=== PATIENT | female | born 1980 | race Asian ===

== ENCOUNTER → 2016-10-10 | Outpatient (CLI) | payer BC ==
[~2016-10-10] MED LIST: LEVO75TA5 PO
--- NOTE | 2016-10-10 12:02 | DIAGNOSTIC IMAGING REPORT ---
LUMBAR SPINE 5 VIEWS CLINICAL HISTORY: Low back pain. FINDINGS: 5 views of the lumbar spine are obtained. No prior studies are available for comparison at the time of dictation. The skeletal structures are well mineralized. There is no radiographic evidence of fracture or malalignment. Vertebral body height and alignment are maintained. The transverse and spinous processes are intact. There is no evidence of spondylolysis. Tiny anterior osteophytes are seen from L2 to L4. Minimal degenerative disc space narrowing is seen at L5-S1. The remaining intervertebral disc spaces are well-maintained. The visualized bony pelvis appears intact. There is a nonobstructed abdominal bowel gas pattern. IMPRESSION: Unremarkable radiographic evaluation of the lumbosacral spine. Electronically signed by: Manuel Farrar M.D. 10/10/2016 12:01 PM Dictated Date/Time: 10/10/2016 12:00 PM
--- NOTE | 2016-10-10 12:06 | DIAGNOSTIC IMAGING REPORT ---
C-SPINE ROUTINE 4 OR 5 VIEWS CLINICAL HISTORY: Neck pain. COMPARISON STUDY: No previous studies for comparison. FINDINGS: There is reversal of the normal cervical lordosis. No fracture or suspicious lesion is present. There is mild disc space narrowing and osteophytosis at C5-C6 and C6-C7. IMPRESSION: 1. No acute cervical spine fracture. 2. Reversal of normal cervical lordosis. 3. Mild disc space narrowing and osteophytosis at C5-C6 and C6-C7. Electronically signed by: Laron Douglas M.D. 10/10/2016 12:04 PM Dictated Date/Time: 10/10/2016 12:00 PM
== END | disposition home or self-care (01) ==
LOC: C.RAD 11:20
PROVIDERS: ATTEND Family Medicine
DX: M54.5 Low back pain (principal); M54.2 Cervicalgia

== ENCOUNTER → 2017-01-14 | Outpatient (CLI) | payer BC | END | disposition home or self-care (01) | LOC: C.LAB1850 09:39 | PROVIDERS: ATTEND Obstetrics & Gynecology | DX: Z34.90 Encounter for supervision of normal pregnancy, unspecified, unspecified trimester (principal) ==

== ENCOUNTER → 2017-01-31 | Outpatient (CLI) | payer BC ==
[2017-01-31 18:25] LABS: URINE APPEARANCE CLEAR (CLEAR); URINE BILIRUBIN NEG (NEG); URINE COLOR YELLOW; URINE NITRITE NEG (NEG); URINE PH 8.5 (4.5-7.5); URINE SPECIFIC GRAVITY 1.009 (1.000-1.030); UROBILINOGEN NEG (NEG)
[2017-01-31 18:35] LABS: MANUAL MICROSCOPIC REQUIRED? NO; REVIEW REQ? NO
== END | disposition home or self-care (01) ==
LOC: C.LABSPEC 17:28
PROVIDERS: ATTEND Obstetrics & Gynecology
DX: O09.521 Supervision of elderly multigravida, first trimester (principal); Z3A.00 Weeks of gestation of pregnancy not specified

== ENCOUNTER → 2017-02-06 | Outpatient (CLI) | payer BC ==
[2017-02-06 16:56] LABS: POTASSIUM 3.8 mmol/L (3.5-5.1)
[2017-02-06 17:00] LABS: BASO % 0.3 %; BASO ABS # 0.02 K/uL (0-0.2); COMPLETE YES; EOS % 1.6 %; HEMATOCRIT 38.8 % (37-47); IG% 0.3 %; LYMPH % 19.2 %; LYMPH ABS # 1.41 K/uL (1.2-3.4); MEAN CELL VOLUME 81.9 fL (80-100); MEAN CORPUSCULAR HEMOGLOBIN 27.4 pg (25-34); MEAN CORPUSCULAR HGB CONC 33.5 g/dl (32-36); MEAN PLATELET VOLUME 11.8 fL (7.4-10.4); MONO % 7.1 %; NEUT % 71.5 %; PLATELET COUNT 220 K/uL (130-400); RED BLOOD COUNT 4.74 M/uL (4.2-5.4); WHITE BLOOD COUNT 7.34 K/uL (4.8-10.8)
[2017-02-06 17:09] LABS: THYROID STIMULATING HORMONE 0.898 uIu/ml (0.300-4.500)
[2017-02-09 13:34] LABS: CHLAMYDIA TRACH RNA*** NOT DETECTED (NOT DETECTED); GC (NEIS GONORRHOEAE)RNA** NOT DETECTED (NOT DETECTED)
== END | disposition home or self-care (01) ==
LOC: C.LAB1850 14:52
PROVIDERS: ATTEND Obstetrics & Gynecology
DX: O09.521 Supervision of elderly multigravida, first trimester (principal); O99.281 Endocrine, nutritional and metabolic diseases complicating pregnancy, first trimester; O99.89 Other specified diseases and conditions complicating pregnancy, childbirth and the puerperium; E34.9 Endocrine disorder, unspecified; R00.2 Palpitations; Z3A.00 Weeks of gestation of pregnancy not specified

== ENCOUNTER → 2017-02-06 | Outpatient (CLI) | payer BC | END | disposition home or self-care (01) | LOC: C.PAPS 08:39 | PROVIDERS: ATTEND Obstetrics & Gynecology | DX: O09.521 Supervision of elderly multigravida, first trimester (principal); Z3A.00 Weeks of gestation of pregnancy not specified ==

== ENCOUNTER → 2017-06-13 | Outpatient (CLI) | payer OTHER | END | disposition home or self-care (01) | LOC: C.LABSPEC 13:06 | PROVIDERS: ATTEND Obstetrics & Gynecology | DX: O99.283 Endocrine, nutritional and metabolic diseases complicating pregnancy, third trimester (principal); E03.9 Hypothyroidism, unspecified; Z3A.00 Weeks of gestation of pregnancy not specified ==

== ENCOUNTER → 2017-06-13 | Outpatient (CLI) | payer OTHER ==
[2017-06-13 12:31] LABS: HEMOGLOBIN 11.4 g/dL (12.0-16.0)
== END | disposition home or self-care (01) ==
LOC: C.LAB1850 10:40
PROVIDERS: ATTEND Obstetrics & Gynecology
DX: O99.283 Endocrine, nutritional and metabolic diseases complicating pregnancy, third trimester (principal); E03.9 Hypothyroidism, unspecified; Z3A.00 Weeks of gestation of pregnancy not specified

== ENCOUNTER → 2017-06-20 | Outpatient (CLI) | payer OTHER | END | disposition home or self-care (01) | LOC: C.LAB1850 08:48 | PROVIDERS: ATTEND Obstetrics & Gynecology | DX: O28.1 Abnormal biochemical finding on antenatal screening of mother (principal); Z3A.00 Weeks of gestation of pregnancy not specified ==

== ENCOUNTER → 2017-08-08 | Outpatient (CLI) | payer OTHER | END | disposition home or self-care (01) | LOC: C.LABSPEC 13:06 | PROVIDERS: ATTEND Obstetrics & Gynecology | DX: O99.283 Endocrine, nutritional and metabolic diseases complicating pregnancy, third trimester (principal); Z3A.00 Weeks of gestation of pregnancy not specified ==

== ENCOUNTER 2017-09-04 23:59 | Inpatient (IN) | payer OTHER ==
[~2017-09-04] VITALS: Ht 162.6 cm; Wt 87.0 kg
[2017-09-05] MEDS ORDERED: LACTATED RINGER'S 1000ML 1,000 ML IV PRN (00:03)
[2017-09-05] MEDS ORDERED: PENICILLIN G POTASSIUM IV 3 MU in DEXTROSE 5% 100ML 100 ML IV PRN (00:15)
[2017-09-05] MEDS ORDERED: PENICILLIN G POTASSIUM IV 6 MU in DEXTROSE 5% 250ML 250 ML IV ONE (00:15)
[2017-09-05 00:25] LABS: HEMATOCRIT 37.9 % (37-47); HEMOGLOBIN 12.5 g/dL (12.0-16.0); MEAN CELL VOLUME 82.9 fL (80-100); MEAN CORPUSCULAR HEMOGLOBIN 27.4 pg (25-34); MEAN PLATELET VOLUME 11.4 fL (7.4-10.4); PLATELET COUNT 206 K/uL (130-400); RED CELL DISTRIBUTION WIDTH CV 13.7 % (11.5-14.5); WHITE BLOOD COUNT 8.81 K/uL (4.8-10.8)
[2017-09-05] MEDS ORDERED: FENTANYL 2MCG/ML ROPIV 1.25MG/ML 100ML BAG EPI ONE (00:48)
[2017-09-05] MEDS ORDERED: EpHEDrine SULFATE INJ 50 MG/ML AMP ONE (00:48)
[2017-09-05] MEDS ORDERED: FENTANYL CITRATE INJ 50 MCG/1 ML 2 ML VIAL ONE (00:48)
[2017-09-05] MEDS ORDERED: BUPIVACAINE 0.25% 30 ML VIAL ONE (00:48)
[2017-09-05] MEDS ORDERED: ASPI-435 (01:09)
[2017-09-05] MEDS ORDERED: PREN1TAB29 (01:10)
[2017-09-05 01:11] VITALS: Ht 162.6 cm; Wt 87.0 kg
[2017-09-05] MEDS: LACTATED RINGER'S 1000ML 1,000 ML IV SCH ×2 (01:37→05:01)
[2017-09-05] MEDS ORDERED: LACTATED RINGER'S 1000ML 500 ML IV PRN (01:40)
[2017-09-05] MEDS ORDERED: FENTANYL 2MCG/ML ROPIV 1.25MG/ML 100ML BAG EPI PRN (01:45)
[2017-09-05] MEDS ORDERED: NALOXONE HCL INJ 0.4 MG/1 ML VIAL/CARP IV PRN (01:45)
[2017-09-05] MEDS ORDERED: ONDANSETRON INJ 2 MG/ML 2 ML VIAL IV PRN (01:45)
[2017-09-05] MEDS ORDERED: EpHEDrine SULFATE INJ 50 MG/ML AMP IV PRN (01:45)
[2017-09-05] MEDS ORDERED: OXYTOCIN 30 UNITS/500ML NSS IV ONE (05:43)
[2017-09-05] MEDS ORDERED: OXYCODONE/ACETAMINOPHEN 5-325 TAB PO PRN (06:30)
[2017-09-05] MEDS ORDERED: BENZOCAINE 20% AER SPR 82.5 GM CAN EXT PRN (06:30)
[2017-09-05] MEDS ORDERED: OXYTOCIN 30 UNITS/500ML NSS IV PRN (06:30)
[2017-09-05] MEDS ORDERED: ACETAMINOPHEN 325 MG TAB PO PRN (06:30)
[2017-09-05] MEDS ORDERED: ACETAMINOPHEN/CODEINE 300/30MG TAB PO PRN (06:30)
[2017-09-05] MEDS ORDERED: HYDROCORTISONE ACETATE 25 MG SUPP PR PRN (06:30)
[2017-09-05] MEDS ORDERED: SUPERCREAM 0.870 % 15GM JAR EXT PRN (06:30)
[2017-09-05] MEDS ORDERED: LANOLIN OINT EXT PRN (06:30)
[2017-09-05] MEDS ORDERED: DIPHTHERIA/TETANUS/PERTUSSIS 0.5 ML SYR/VIAL IM. ONE (06:30)
[2017-09-05] MEDS: LEVOTHYROXINE 75 MCG TAB PO SCH (07:58)
--- NOTE | 2017-09-05 08:22 | Anesthesia Procedure Note ---
Anesthesia Epidural Removal Nt Date & Time Sep 05, 2017 at 08:22 Vital Signs Pain Intensity: 0.0 Notes Mental Status: alert / awake / arousable, participated in evaluation Nausea / Vomiting: adequately controlled Pain: adequately controlled Airway Patency, RR, SpO2: stable & adequate BP & HR: stable & adequate Hydration State: stable & adequate Neuraxial Anesthesia: was administered, sensory block is resolving Anesthetic Complications: no major complications apparent, pt satisfied with anesthetic care Epidural: removed without complications, with tip intact
--- NOTE | 2017-09-05 08:53 | DELIVERY SUMMARY ---
DATE OF OPERATION: 09/05/2017 VAGINAL DELIVERY NOTE Landry arrived in active labor on patcher helper of 09/05/2017. She had had one prior and one prior vaginal . She wished to attempt . She progressed quickly from 5 cm, had an epidural to fully dilate it. She then pushed with clear fluid delivering a baby in right occiput anterior. Mouth and the nares were suctioned. No nuchal cord. Gentle traction. No excessive force used. Live vigorous female . Cord clamped and cut. Cord gases obtained. Placenta removed. Uterus examined internally. Scar appeared to be intact. Small second-degree tear repaired with 3-0 Vicryl. Sponge and instrument counts correct. Estimated blood loss 300 mL. Rectal exam negative for sutures or defects. I attest to the content of the Intraoperative Record and any orders documented therein. Any exceptions are noted below. MTDD
[2017-09-05] MEDS: PRENATAL VITAMIN TAB PO SCH (10:02)
[2017-09-05] MEDS: DOCUSATE SODIUM 100 MG CAP PO SCH ×2 (10:02→20:05)
[2017-09-05 10:10] VITALS: BP 101/66; PULSE 104; O2SAT 97
[2017-09-05] MEDS: IBUPROFEN 600 MG TAB PO PRN ×2 (13:03→17:10)
[2017-09-05] MEDS: ACETAMINOPHEN/CODEINE 300/30MG TAB PO PRN ×2 (13:10→17:37)
[2017-09-05 13:20] VITALS: BP 123/84; PULSE 73; TEMP 36.7; O2SAT 99
[2017-09-05 16:12] VITALS: BP 115/77; PULSE 81; TEMP 36.8; O2SAT 98
[2017-09-05 20:08] VITALS: BP 98/63; PULSE 78; TEMP 36.7; O2SAT 96
[2017-09-05 23:15] VITALS: BP 109/74; PULSE 78; TEMP 36.4; O2SAT 94
[2017-09-06 04:40] VITALS: BP 112/77; PULSE 65; TEMP 36.4; O2SAT 97
--- NOTE | 2017-09-06 05:51 | Progress Note ---
Subjective Sep 06, 2017. Subjective conversation w/ patient, physical exam, chart review, lab review Ambulation: ambulating normally Voiding: no voiding problems Passing Gas: Yes Diet Tolerance: Regular Diet Lochia: Small Feeding Type: Breast Feeding Review of Systems Constitutional: No fever, No chills Respiratory: No cough, No shortness of breath Cardiac: No chest pain, No palpitations Abdomen: No pain, No nausea, No vomiting Female : No dysuria Objective Vital Signs Date Time Temp Pulse Resp B/P (MAP) Pulse Ox O2 Delivery O2 Flow Rate FiO2 09/06/17 04:40 36.4 65 16 112/77 (89) 97 Room Air 09/05/17 23:15 Room Air 09/05/17 23:15 36.4 78 16 109/74 (86) 94 Room Air 09/05/17 20:08 36.7 78 20 98/63 (75) 96 Room Air 09/05/17 16:12 36.8 81 20 115/77 (90) 98 Room Air 09/05/17 16:12 98 Room Air 09/05/17 13:20 36.7 73 18 123/84 (97) 99 Room Air 09/05/17 10:10 97 Room Air 09/05/17 10:10 104 18 101/66 (78) 97 Room Air Physical Exam General Appearance: WELL-APPEARING, WD/WN, NO APPARENT DISTRESS Respiratory/Chest: lungs clear, no accessory muscle use Cardiovascular: regular rate, rhythm, no murmur Abdomen: non tender, soft Fundus: Firm Extremities: non-tender, normal inspection Laboratory Results Last 24 Hours Test 09/06/17 04:44 Assessment and Plan Post- Day#: 1 Continue Routine Care: 37, F, , B+/RI/GBS+ (appropriate abx given), PPD1. Vitals reviewed, WNL. Hgb 12.5 on admission, pending this am. Pt did feel a bit dizzy initially with ambulation--doing well now--encourage fluids. Patient is doing well clinically. 1. Recovery from vaginal delivery--ambulate, support BF, monitor lochia, control pain Resident Physician Supervision Note: I interviewed and examined the patient. Discussed with Dr. Tomas and agree with findings and plan as documented in the note. Any exceptions or clarifications are listed here: [None] Documented By: Latrice Hhan
--- NOTE | 2017-09-06 05:52 | Discharge Instructions ---
Discharge Instructions Date of Service Sep 06, 2017. Admission Reason for Admission: Discharge Discharge Diagnosis / Problem: vaginal delivery Discharge Goals Goal(s): Routine recovery after delivery Medications Continue Dispensed Medications: supercream, dermaplast, tucks, lansinoh Activity Recommendations Activity Limitations: per Instructions/Follow-up section . Instructions / Follow-Up Instructions / Follow-Up ACTIVITY RECOMMENDATIONS: * Gradual return to full activity over the next 2-3 weeks. * No lifting - nothing heavier than baby over the next 2-3 weeks. * Do not engage in vigorous exercise, sexual activity or sports until cleared by your physician. * Do not drive or operate any motorized equipment until cleared by your physician. * You may shower/bathe daily. MEDICATIONS: For discomfort or pain, you may use Acetaminophen (Tylenol), Ibuprofen (Advil), or Naproxen (Aleve) following the package directions. For constipation you may use Colace following the package directions. BREAST CARE: If you are not breast feeding: * Wear a supportive bra 24 hours a day for one to two weeks. * Avoid stimulating your breasts and nipples as much as possible during the first few weeks after delivery. * When taking a shower, have the warm water hit your back, not breasts. * When your breasts feel full, apply ice packs. Usually three to four times a day helps ease the discomfort. * Take a mild pain medication (Tylenol / Motrin) when you are uncomfortable. If breast feeding: * Use breast milk to lubricate nipples. Lansinoh cream may be used for sore nipples. You do not need to remove cream prior to breast feeding. If using a different brand of cream, check the label for directions regarding removal of cream prior to nursing. * Wear a supportive bra. * If having problems with breasts or breast feeding, call a obiee consultant or your health care provider. EPISIOTOMY CARE: After delivery, if you have an episiotomy (stitches), the following steps will ease discomfort and aid healing. * For the first 24 hours after delivery, place ice packs next to your episiotomy to help reduce swelling. * After the first 24 hour-period, sitz baths, either portable or in the tub, are suggested. A shower with a shower arm sprayed over the episiotomy may be comforting. * Deanna care should be done after each voiding and bowel movement. Squirt warm water from a plastic bottle over the perineum (region of the body between the anus and urinary opening) and pat dry. * Use Dermoplast to ease discomfort. Shake container. [place] directly over the episiotomy. Place a Tucks on a clean sanitary pad next to your episiotomy. SPECIAL CARE INSTRUCTIONS: When you are discharged from the hospital, it is important for you to follow the instructions listed below: * During the first week at home, you should be able to care for yourself and your baby. In addition, the usual light household activities are encouraged. * Limit your activities to the way you feel. Do not try to clean the house or move furniture. Be sensible. * If you actively engage in sports and have done so up until the time of your delivery, you may resume these activities as soon as you feel able. This may take up to one month or even longer. Use good judgment. * Continue to take your vitamins for at least six weeks after the of your baby. * Your diet need not be limited unless you were on a special diet before your delivery. Breast-feeding mothers need around 2500 calories per day and at least 64-80 ounces of fluid per day (8 to 10 glasses). * You should eat foods from the four major food groups. Crash diets or fad diets are to be avoided. Eating lean meats, fresh fruits and vegetables, low-fat dairy products, high fiber foods and a regular exercise program, will help you get back to your pre- weight without putting your health at risk. * Constipation is sometimes a problem after delivery. Take a mild laxative as needed. If breast feeding, Milk of Magnesia is acceptable to use. You may use a suppository or Fleets enema if no episiotomy. * A daily shower or tub bath is suggested. Be sure to thoroughly and gently dry the perineum. * A bloody vaginal discharge will usually continue until around four weeks post . A small amount of bleeding may continue for as long as six weeks. Vaginal discharge changes from the bright red bleeding after delivery to pink then brownish and finally yellowish-pink before becoming white and disappearing. * Bleeding may increase with activity. Your first period may come in 4-8 weeks. If you are breast feeding, your period may be delayed even longer. * [place] (sex) can begin whenever both you and your partner feel comfortable and do not have any form of genital infection. It is recommended that you wait at least six weeks for internal and external healing to occur. If you have questions, please talk to your health care practitioner. A condom should be used to prevent infection and . * Foreplay, gentle intercourse and lubrication is very important the first several times to prevent pain. A water-based lubricant such as K-Y jelly or Astroglide may be used. * If you have RH negative blood and your baby is RH positive, you will receive RHOGAM by injection prior to discharge. The nurse will give you a card to keep with you that has the date and place that you received RHOGAM after delivery. * During your care, you had a Rubella screen done to check for the presence of rubella antibodies in your blood. If your test was negative, you will receive a Rubella vaccine prior to discharge. This vaccine may cause a fever, soreness at the injection site and flu-like symptoms. If these symptoms persist, notify your health care practitioner. is not advised for one month after a Rubella vaccine. * Verbalizes understanding of car seat law as reviewed with patient nursing. * Car Seat hand-out given and reviewed with patient by nursing. * Shaken baby information reviewed with patient by nursing. Call you doctor if: * Heavy bleeding (saturating several pads an hour) or passing clots the size of your fist. * A fever >101 degrees F (38.3 degrees C) on two occasions four hours apart and /or chills. * Unusual pain in the pelvic or vaginal areas. * "Baby Blues" lasting longer than two weeks. If you have any questions or concerns, call your health care practitioner at . FOLLOW UP VISIT: * Please call the office at to schedule a 6 week examination. It is important you keep this appointment. It is important for you to make arrangements for either yearly or twice yearly check-ups thereafter. Current Hospital Diet Patient's current hospital diet: Regular OB Diet Discharge Diet Recommended Diet: Regular Diet, Regular OB Diet Pending Studies Studies pending at discharge: no Medical Emergencies . Who to Call and When: Medical Emergencies: If at any time you feel your situation is an emergency, please call 911 immediately. . Non-Emergent Contact Non-Emergency issues call your: Primary Care Provider, Heat [employer] Teacher . . "Provider Documentation" section prepared by Mauricio Tomas. .
[2017-09-06] MEDS: LEVOTHYROXINE 75 MCG TAB PO SCH (06:23)
[2017-09-06 06:30] LABS: HEMATOCRIT 31.7 % (37-47); HEMOGLOBIN 10.5 g/dL (12.0-16.0)
[2017-09-06] MEDS: ACETAMINOPHEN/CODEINE 300/30MG TAB PO PRN (06:44)
[2017-09-06] MEDS: PRENATAL VITAMIN TAB PO SCH (08:12)
[2017-09-06] MEDS: DOCUSATE SODIUM 100 MG CAP PO SCH ×2 (08:12→21:27)
[2017-09-06 08:15] VITALS: BP 110/75; PULSE 85; TEMP 36.3; O2SAT 96
[2017-09-06] MEDS: IBUPROFEN 600 MG TAB PO PRN ×3 (10:36→21:28)
[2017-09-06 15:30] VITALS: BP 117/79; PULSE 84; TEMP 36.5
[2017-09-06] MEDS ORDERED: BISACODYL 5 MG TABEC PO SCH (20:00)
[2017-09-06 23:20] VITALS: BP 108/73; PULSE 68; TEMP 36.6; O2SAT 99
[2017-09-07 06:55] LABS: HEMATOCRIT 32.6 % (37-47); HEMOGLOBIN 10.6 g/dL (12.0-16.0); MEAN CELL VOLUME 83.8 fL (80-100); MEAN CORPUSCULAR HEMOGLOBIN 27.2 pg (25-34); MEAN CORPUSCULAR HGB CONC 32.5 g/dl (32-36); PLATELET COUNT 198 K/uL (130-400); WHITE BLOOD COUNT 9.45 K/uL (4.8-10.8)
[2017-09-07] MEDS ORDERED: BISACODYL 10 MG SUPP PR PRN (07:00)
[2017-09-07] MEDS: LEVOTHYROXINE 75 MCG TAB PO SCH (07:53)
[2017-09-07] MEDS: DOCUSATE SODIUM 100 MG CAP PO SCH (07:53)
[2017-09-07] MEDS: PRENATAL VITAMIN TAB PO SCH (07:53)
[2017-09-07] MEDS: IBUPROFEN 600 MG TAB PO PRN (07:54)
[2017-09-07 08:00] VITALS: BP 110/69; PULSE 75; TEMP 36.5; O2SAT 96
--- NOTE | 2017-09-07 09:23 | Progress Note ---
Subjective Sep 07, 2017. Subjective conversation w/ patient, physical exam Ambulation: ambulating normally Voiding: no voiding problems Diet Tolerance: Regular Diet Lochia: Small Feeding Type: Breast Feeding Pain: nipple sore with initial latch Objective Vital Signs Date Time Temp Pulse Resp B/P (MAP) Pulse Ox O2 Delivery O2 Flow Rate FiO2 09/07/17 08:00 36.5 75 20 110/69 (83) 96 Room Air 09/07/17 08:00 96 Room Air 09/06/17 23:20 36.6 68 16 108/73 (85) 99 Room Air 09/06/17 23:20 Room Air 09/06/17 15:30 Room Air 09/06/17 15:30 36.5 84 20 117/79 (92) Room Air Physical Exam General Appearance: WELL-APPEARING, WD/WN, NO APPARENT DISTRESS Respiratory/Chest: lungs clear Cardiovascular: regular rate, rhythm Abdomen: non tender, soft Fundus: Firm, Relation to Umbilicus (2 down) Extremities: non-tender Laboratory Results Last 24 Hours Test 09/07/17 06:21 White Blood Count 9.45 K/uL Red Blood Count 3.89 M/uL Hemoglobin 10.6 g/dL Hematocrit 32.6 % Mean Corpuscular Volume 83.8 fL Mean Corpuscular Hemoglobin 27.2 pg Mean Corpuscular Hemoglobin Concent 32.5 g/dl RDW Standard Deviation 42.0 fL RDW Coefficient of Variation 14.0 % Platelet Count 198 K/uL Mean Platelet Volume 11.0 fL Assessment and Plan Post- Day#: 2 Continue Routine Care: stable, d/c home, instructions reviewed. plan 6wk pp check. .
[2017-09-07 11:14] VITALS: BP_DIAS 69; PULSE 75; TEMP 36.5
== END 2017-09-07 12:10 | disposition home or self-care (01) | DRG 775 ==
LOC: C.LD 23:59 → C.OPB 23:59 → C.LD 09-05 00:03 → C.OPB 09-05 00:03 → C.OBG 09-05 10:16
PROVIDERS: ADMIT Obstetrics & Gynecology; ATTEND Obstetrics & Gynecology
PROC: 0KQM0ZZ Repair Perineum Muscle, Open Approach (ICD-10-PCS; principal; 2017-09-05)
PROC: 10E0XZZ Delivery of Products of Conception, External Approach (ICD-10-PCS; principal; 2017-09-05)
DX: O34.219 Maternal care for unspecified type scar from previous cesarean delivery (principal); O70.1 Second degree perineal laceration during delivery; Z3A.40 40 weeks gestation of pregnancy; Z22.330 Carrier of Group B streptococcus; Z37.0 Single live birth